=== PATIENT | male | born 1965 | race American Indian/Alaskan Native ===

== ENCOUNTER 2018-06-10 02:02 | Emergency (ER) | payer MEDICAID, MEDICARE ==
[2018-06-10 02:14] VITALS: BMI 25.4
[2018-06-10 02:15] VITALS: BP 156/104; PULSE 85; RESP 16; TEMP 97.9; O2SAT 98
--- NOTE | 2018-06-10 03:40 | ED PDOC ---
Lower Extremity Pain/Injury Time Seen by Provider: 06/10/18 03:10 Chief Complaint (Nursing): Lower Extremity Problem/Injury Chief Complaint (Provider): left leg pain History Per: Patient History/Exam Limitations: no limitations Onset/Duration Of Symptoms: Days Current Symptoms Are (Timing): Still Present Additional Complaint(s): 52 y/o male presents for evaluation of left leg pain x 3 days. Patient states he fell at work and landed on outside of left leg; states since then when bending over he feels a "locking" sensation around his left knee. Denies swelling, limitation of movement. Past Medical History Reviewed: Historical Data, Nursing Documentation, Vital Signs Vital Signs: Last Vital Signs Temp 97.9 F 06/10/18 02:14 Pulse 85 06/10/18 02:14 Resp 16 06/10/18 02:14 BP 156/104 H 06/10/18 02:14 Pulse Ox 98 06/10/18 02:14 - Medical History PMH: HTN - Family History Family History: States: Unknown Family Hx - Home Medications Home Medications: Ambulatory Orders Medication Instructions Recorded Naproxen [Naprosyn] 500 mg PO Q12 PRN #14 tablet 06/10/18 - Allergies Allergies/Adverse Reactions: Allergies Allergy/AdvReac Type Severity Reaction Status Date / Time No Known Allergies Allergy Verified 06/10/18 02:25 Review of Systems ROS Statement: Except As Marked, All Systems Reviewed And Found Negative Musculoskeletal: Positive for: Leg Pain Physical Exam - Reviewed Nursing Documentation Reviewed: Yes Vital Signs Reviewed: Yes - Physical Exam Appears: Positive for: Well, Non-toxic, No Acute Distress Head Exam: Positive for: ATRAUMATIC, NORMAL INSPECTION, NORMOCEPHALIC Skin: Positive for: Normal Color Eye Exam: Positive for: Normal appearance ENT: Positive for: Normal ENT Inspection Cardiovascular/Chest: Positive for: Regular Rate, Rhythm Respiratory: Positive for: Normal Breath Sounds Gastrointestinal/Abdominal: Positive for: Normal Exam Back: Positive for: Normal Inspection Extremity: Positive for: Normal ROM, Swelling (mild swelling lateral left knee; FROM. Distal NV/motor intact) Neurologic/Psych: Positive for: Alert, Oriented (x3) - ECG O2 Sat by Pulse Oximetry: 98 - Other Rad left knee xray X-Ray: Viewed By Fl X-Ray Interpretation: no acute findings - Progress ED Course And Treament: -left knee xray -ibuprofen PO Patient educated on findings, RAYSHAWN wrap applied to left knee Advised RICE rx naproxen given Follow up Disposition - Clinical Impression Clinical Impression: Left knee pain - Patient ED Disposition Is Patient to be Admitted: No Counseled Patient/Family Regarding: Studies Performed, Diagnosis, Need For Followup, Rx Given - Disposition Referrals: [facility] [Outside] Disposition: Routine/Home Disposition Time: 04:53 Condition: IMPROVED Prescriptions: Naproxen [Naprosyn] 500 mg PO Q12 PRN #14 tablet PRN Reason: Pain, Moderate (4-7) Instructions: Knee Pain
--- NOTE | 2018-06-10 11:58 | RAD ---
Date of service: 06/10/2018 PROCEDURE: Left Knee Radiographs. HISTORY: Posttraumatic pain COMPARISON: None. FINDINGS: BONES: Normal. No fracture. JOINTS: Normal. No osteoarthritis. JOINT EFFUSION: None. OTHER FINDINGS: None. IMPRESSION: Normal radiographs of the left knee.
== END 2018-06-10 06:35 | disposition home or self-care (01) ==
LOC: H.ER 02:02
DX: M25.562 Pain in left knee (principal); I10 Essential (primary) hypertension